=== PATIENT | male | born 1955 | race Caucasian/White ===

== ENCOUNTER 2024-08-14 11:48 | Outpatient (AMB) | payer MEDICARE, SELFPAY ==
--- NOTE | 2024-08-14 12:02 | HO.NEPHOV_ITS ---
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 He is 69 years of age with H/O vascular disease. He had CAD needing CABG and has a defibrillator. 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 He was found to have proteinuria. He recently had UE and LE swelling needing diuresis. His last ECHO showed EF of 60-65% with diastolic dysfunction. He has moderate pulmonary hypertension with PA systolic pressure of 59 mm of Hg. His serum creatinine recently had gone up to 1.61 which according to the patient has improved ( as per patient) after discontinuation of ACEI. He is unsure whether he has been getting bisphosphonates. He denies PND or orthopnea. He has no hematuria or urinary complaints. He denies taking excess sodium or NSAID's. His BP has been running low normal. He denies nausea, vomiting or diarrhea. He feels his edema has improved with torsemide [facility] Medical History (Updated 08/14/24 @ 12:31 by Berry Davila MD) Cardiac defibrillator in place MGUS (monoclonal gammopathy of unknown significance) BCC (basal cell carcinoma), face Type 2 diabetes mellitus IFG (impaired fasting glucose) Anemia Psoriasis Hyperlipidemia NSTEMI (non-ST elevated myocardial infarction) CAD (coronary artery disease) Surgical History S/P skin cancer resection Hx of CABG Family History Father Heart disease Coronary artery disease Hypertension Mother Hypertension Cerebrovascular accident Social History Patient Tobacco Use Status: Former Tobacco user Review of Systems Const All systems reviewed & are unremarkable except as noted in HPI and below Physical Exam Vital Signs: Last Vital Signs Pulse 57 08/14/24 12:03 BP 98/54 L 08/14/24 12:03 Pulse Ox 98 08/14/24 12:03 Oxygen Delivery Method Room Air 08/14/24 12:03 BMI result Body Mass Index 30.2 Const General: comfortable and no acute distress Orientation/consciousness: patient oriented x3 HEENT Head: Yes normocephalic Mouth: Normal oral and palatal mucosa present Eyes EOM: EOMs intact bilaterally Neck Neck: Yes supple Resp Auscultation: clear to auscultation bilaterally Cardio Jugular venous distension: no JVD Rate: regular rate GI Palpation (GI): Soft to palpation Auscultation: normal bowel sounds General: Yes no CVA tenderness Back/Spine/Pelvis Back: no CVA tenderness Skin General skin exam: no rashes or lesions noted Neuro General: patient oriented x3 and moves all extremities Assessment & Plan Assessment & Plan (1) MAGY (acute kidney injury): Code(s): N17.9 - Acute kidney failure, unspecified Category: Medical Plan Alli has MAGY likely due to compromise in renal perfusion with resultant tubular injury. He might have had altered autoregulation of the kidney while being on ACEI which has been discontinued. DDx - light chain disease of the kidney, medication induced . Unlikely due to obstruction. Serum creatinine better after holding ACEI. If his BP is running low normal, we may have to back off on beta renetta and add a nitrate given increase pulmonary artery systolic pressure. He needs a sleep study as well as USS of legs to R/O DVT. He may need renal biopsy if he develops worsening proteinuria or renal functions. Follow up labs ordered.Answered all questions . Orders: Orders Complete Blood Count Auto Diff 3 Months N17.9 - Acute kidney failure, unspecified Creatinine 3 Months N17.9 - Acute kidney failure, unspecified Protein Creatinine Ratio, Ur 3 Months N17.9 - Acute kidney failure, unspecified Blood Urea Nitrogen 3 Months N17.9 - Acute kidney failure, unspecified Electrolytes 3 Months N17.9 - Acute kidney failure, unspecified Calcium 3 Months N17.9 - Acute kidney failure, unspecified Albumin Level 3 Months N17.9 - Acute kidney failure, unspecified Coding Level of Care Code New Pt Level 4 (51163) Diagnoses MAGY (acute kidney injury) N17.9
[2024-08-14 12:03] VITALS: BP 98/54; PULSE 57; O2SAT 98; BMI 30.2
--- OUTSIDE RECORDS SUMMARY | 2024-08-14 12:48 | XMS_ITS | Clinical Summary ---
Author Organization [address] [facility] Address [address] [place] [address] Phone Care Team Providers Care Humane Officer Name Role Phone Rodney Crowell DO Primary Care Provider [phone] Social History Tobacco Use Types Packs/Day Years Used Date Smoking Tobacco: Never Assessed Sex and Gender Information Value Date Recorded Sex Assigned at Not on file Legal Sex Male 3:18 AM EST Gender Identity Not on file Sexual Orientation Not on file Plan of Treatment Upcoming Encounters Date Type Department Care Team ([facility] Contact Info) Description 10/16/2024 10:00 AM EDT Consult Orthopedic Surgery - [place] [id number] [phone] Srinivas Dunham, DPM [address] [address] Health Maintenance Due Date Last Done Comments Diabetes: Annual Foot Exam 1964 Diabetes: Annual Retina Eye Exam 1964 DTaP,Tdap,and Td Vaccines (1 - Tdap) 1973 Zoster Vaccines (1 of 2) 2004 Pneumococcal Vaccine: 50+ Years (2 of 2 - PCV) 11/03/2017 11/03/2016 Abdominal Aortic Aneurysm (AAA) Screen 01/10/2022 Colorectal Cancer Screening: Colonoscopy 01/10/2022 Depression Screening 01/10/2022 Falls Risk Assessment 01/10/2022 Hepatitis C Screening 01/10/2022 Medicare Annual Wellness Visit 01/10/2022 Social Influencers of Health Screening 01/10/2022 COVID-19 Vaccine ( season) 2023 07/24/2021, 01/28/2021, 06/17/2020, Additional history exists Diabetes: Annual Urine Albumin-Creatinine Ratio (uACR) 06/21/2024 Influenza Vaccine (#1) 2024 11/03/2016 Diabetes: Blood Sugar Control Test (HGBA1C) 01/11/2025 07/12/2024, 02/14/2024 Diabetes: Annual GFR (Glomerular Filtration Rate) 07/12/2025 07/12/2024, 01/17/2024 Hypertension/CHF/CAD Annual BMP Blood Test 07/12/2025 07/12/2024, 01/17/2024 RSV Immunization Adult Patients (1 - 1-dose 75+ series) 2029 Cholesterol Screening (Lipid Panel) 07/12/2029 07/12/2024, 02/14/2024 HIB Vaccines Aged Out No longer eligi ble based on patient's age to complete this topic HPV Vaccines Aged Out No longer eligi ble based on patient's age to complete this topic Hepatitis A Vaccines Aged Out No long er eligible based on patient's age to complete this topic Hepatitis B Vaccines Aged Out No long er eligible based on patient's age to complete this topic IPV Vaccines Aged Out No longer eligi ble based on patient's age to complete this topic MMR Vaccines Aged Out No longer eligi ble based on patient's age to complete this topic Meningococcal ACWY Vaccine Aged Out N o longer eligible based on patient's age to complete this topic Meningococcal B Vaccine Aged Out No l onger eligible based on patient's age to complete this topic RSV Immunization Patients Under 20 months Aged Out No longer eligible based on patient's age to complete this topic Varicella Vaccines Aged Out No longer eligible based on patient's age to complete this topic Procedures Procedure Name Priority Date/Time Associated Diagnosis Comments HEMOGLOBIN A1C Routine 07/12/2024 1:53 PM EDT CAD (coronary artery disease) HLD (hyperlipidemia) HTN (hypertension) DM (diabetes mellitus) (CMS/HCC V24, [facility] V28) IGT (impaired glucose tolerance) BASIC METABOLIC PANEL Routine 07/12/2024 1:53 PM EDT CAD (coronary artery disease) HLD (hyperlipidemia) HTN (hypertension) DM (diabetes mellitus) (CMS/HCC V24, [facility]/HCC V28) IGT (impaired glucose tolerance) CREATINE KINASE Routine 07/12/2024 1:53 PM EDT CAD (coronary artery disease) HLD (hyperlipidemia) HTN (hypertension) DM (diabetes mellitus) ([facility] V24, [facility] V28) IGT (impaired glucose tolerance) ASPARTATE AMINOTRANSFERASE Routine 07/12/2024 1:53 PM EDT CAD (coronary artery disease) HLD (hyperlipidemia) HTN (hypertension) DM (diabetes mellitus) ([facility] V24, [facility] V28) IGT (impaired glucose tolerance) ALANINE AMINOTRANSFERASE Routine 025 1:53 PM EDT CAD (coronary artery disease) HLD (hyperlipidemia) HTN (hypertension) DM (diabetes mellitus) ([facility] V24, [facility] V28) IGT (impaired glucose tolerance) LIPID PANEL WITH REFLEX TO DIRECT LDL Routine 07/12/2024 1:53 PM EDT CAD (coronary artery disease) HLD (hyperlipidemia) HTN (hypertension) DM (diabetes mellitus) ([facility] V24, [facility] V28) IGT (impaired glucose tolerance) from Last 3 Months Results * Lipid panel with reflex to direct LDL (07/12/2024 1:53 PM EDT) Cholesterol 107 0 - 200 mg/dL LAB CHEMISTRY METHOD 07/12/2024 4:37 PM T [facility] Triglycerides 73 0 - 150 mg/dL LAB CHEMISTRY METHOD 07/12/2024 4:37 PM T [facility] HDL 51 >=40 mg/dL LAB CHEMISTRY METHOD 07/12/2024 4:37 PM [facility] LDL Calculated 41 0 - 100 mg/dL LAB CHEMISTRY METHOD 07/12/2024 4:37 PM [facility] VLDL Cholesterol Rusty 14.6 mg/dL LAB CHEMISTRY METHOD 07/12/2024 4:37 PM T [facility] Non HDL Chol. (LDL+VLDL) 56 <145 mg/dL LAB CHEMISTRY METHOD 07/12/2024 4:37 PM EDT [facility] Chol/HDL Ratio 2.1 0.0 - 4.4 LAB CHEMISTRY METHOD 07/12/2024 4:37 PM EDT [facility] Blood Venous blood specimen / Unknown Venipuncture / Unknown 07/12/2024 1:53 PM EDT 07/12/2024 1:53 PM EDT [facility] [employer] LAB BLOOD ORDERABLES Final Resul t Performing Organization Address [facility]/ZIP Co de Phone Number [facility] [address] [place] [address], [place] [phone] * Alanine aminotransferase (07/12/2024 1:53 PM EDT) ALT (SGPT) 28 10 - 60 unit/L LAB CHEMISTRY METHOD 07/12/2024 4:36 PM EDT [facility] Blood Venous blood specimen / Unknown Venipuncture / Unknown 07/12/2024 1:53 PM EDT 07/12/2024 1:53 PM EDT [facility] [employer] [facility] LAB BLOOD ORDERABLES Final Resul t Performing Organization Address [facility]/ZIP Co de Phone Number [facility] [address] [place] [address], [place] [phone] * Aspartate aminotransferase (07/12/2024 1:53 PM EDT) AST (SGOT) 15 10 - 42 unit/L LAB CHEMISTRY METHOD 07/12/2024 4:36 PM EDT [facility] Blood Venous blood specimen / Unknown Venipuncture / Unknown 07/12/2024 1:53 PM EDT 07/12/2024 1:53 PM EDT [employer] [facility] LAB BLOOD ORDERABLES Final Resul t Performing Organization Address City/[facility]/ZIP Co de Phone Number [facility] [address] [place] [address], [place] [phone] * Hemoglobin A1c (07/12/2024 1:53 PM EDT) [facility] Hemoglobin A1C 5.8 <6.5 % LAB CHEMISTRY METHOD 07/12/2024 10:50 PM EDT [facility] Mean Bld Glu Estim. 120 mg/dL LAB CHEMISTRY METHOD 07/12/2024 10:50 PM EDT [facility] Blood Venous blood specimen / Unknown Venipuncture / Unknown 07/12/2024 1:53 PM EDT 07/12/2024 1:53 PM EDT [facility] LAB BLOOD ORDERABLES Final Resul t Performing Organization Address [facility] de Phone Number [facility] [address] [place] [address], [place] [phone] * Creatine kinase (07/12/2024 1:53 PM EDT) [facility] Total CK 45 22 - 269 unit/L LAB CHEMISTRY METHOD 07/12/2024 4:37 PM EDT [facility] Blood Venous blood specimen / Unknown Venipuncture / Unknown 07/12/2024 1:53 PM EDT 07/12/2024 1:53 PM EDT [employer] LAB BLOOD ORDERABLES Final Resul t Performing Organization Address [facility]/ZIP Co de Phone Number [facility] [address] [place] [address], [place] [phone] * (ABNORMAL) Basic metabolic panel (07/12/2024 1:53 PM EDT) [facility] Sodium 143 133 - 145 mmol/L LAB CHEMISTRY METHOD 07/12/2024 4:36 PM EDT [facility] Potassium 4.3 3.5 - 5.5 mmol/L LAB CHEMISTRY METHOD 07/12/2024 4:36 PM T [facility] Chloride 106 96 - 110 mmol/L LAB CHEMISTRY METHOD 07/12/2024 4:36 PM [facility] CO2 29 21 - 32 mmol/L LAB CHEMISTRY METHOD 07/12/2024 4:36 PM [facility] Anion Gap 8 3 - 11 LAB CHEMISTRY METHOD 07/12/2024 4:36 PM [facility] Glucose 130(H) 70 - 100 mg/dL LAB CHEMISTRY METHOD 07/12/2024 4:36 PM [facility] BUN 19 5 - 25 mg/dL LAB CHEMISTRY METHOD 07/12/2024 4:36 PM [facility] Creatinine 1.62(H) 0.70 - 1.30 mg/dL LAB CHEMISTRY METHOD 07/12/2024 4:36 PM [facility] eGFR 45(L) >=60 mL/min/1. 73m2 LAB CHEMISTRY METHOD 07/12/2024 4:36 PM [facility] Comment:Calculation based on the Chronic Kidney Disease Epidemiology Collaboration (CKD-EPI) equation refit without adjustment for race. BUN/Creatinine Ratio 11.7 LAB CHEMISTRY METHOD 07/12/2024 4:36 PM [facility] Calcium 8.3(L) 8.5 - 10.5 mg/dL LAB CHEMISTRY METHOD 07/12/2024 4:36 PM [facility] Blood Venous blood specimen / Unknown Venipuncture / Unknown 07/12/2024 1:53 PM EDT 07/12/2024 1:53 PM EDT us D[facility] LAB BLOOD ORDERABLES Final Resul t [facility] [address] [place] [address], [place] [phone] from Last [address] [place] [phone] [facility] MEDICAID - [place] [employer] MEDICARE Care Teams Humane Officer Relationship Specialty Start Date End Date Rodney Crowell DO [address] [place] [address] [place] [address] PCP - General Internal Medicine 01/17/24
== END 2024-08-14 12:37 | disposition home or self-care (01) ==
LOC: HO.HKA 11:48
PROVIDERS: PCP Internal Medicine; Visit Provider Internal Medicine Nephrology
DX: N17.9 Acute kidney failure, unspecified (principal)
CPT/HCPCS: 99204

== ENCOUNTER → 2024-08-14 11:48 | Outpatient (BNVA) | payer MEDICARE, SELFPAY | PROVIDERS: PCP Internal Medicine; Visit Provider Internal Medicine Nephrology | DX: R80.8 Other proteinuria (principal); N17.9 Acute kidney failure, unspecified | CPT/HCPCS: 99202 ==

== ENCOUNTER 2024-12-06 09:45 | Outpatient (AMB) | payer MEDICARE, SELFPAY ==
--- NOTE | 2024-12-06 09:49 | HO.NEPHOV_ITS ---
Vital Signs 12/06/24 09:54 Height 5 ft 7 in Weight 182 lb 8 oz BMI 28.6 BP 114/60 Blood Pressure Location Rt brachial Position Sitting Pulse 62 Pulse Source Pulse Oximeter Pulse Oximetry (%) 100 Oxygen Delivery Method Room Air Intake Visit Reasons: 3mon follow-up w/labs-[employer] Required: No Accompanied by: Other Relationship Allergies No Known Allergies Allergy (Verified 12/06/24 09:54) HPI Comments Details: Alli was seen for F/U of H/O MAGY and CKD . He is 69 years of age with H/O vascular disease. He had CAD needing CABG and has a defibrillator. 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 He was found to have proteinuria. He recently had UE and LE swelling needing diuresis. His last ECHO showed EF of 60-65% with diastolic dysfunction. He has moderate pulmonary hypertension with PA systolic pressure of 59 mm of Hg. His serum creatinine recently had gone up to 1.61 which according to the patient has improved ( as per patient) after discontinuation of ACEI. He is unsure whether he has been getting bisphosphonates. He denies PND or orthopnea. He has no hematuria or urinary complaints. He denies taking excess sodium or NSAID's. His BP has been at goal. He denies nausea, vomiting or diarrhea. He feels his edema has improved with diuretics [facility] Medical History (Updated 12/06/24 @ 10:09 by Berry Davila MD) Cardiac defibrillator in place MGUS (monoclonal gammopathy of unknown significance) BCC (basal cell carcinoma), face Type 2 diabetes mellitus IFG (impaired fasting glucose) Anemia Psoriasis Hyperlipidemia NSTEMI (non-ST elevated myocardial infarction) CAD (coronary artery disease) Surgical History S/P skin cancer resection Hx of CABG Family History Father Heart disease Coronary artery disease Hypertension Mother Hypertension Cerebrovascular accident Social History Patient Tobacco Use Status: Former Tobacco user Review of Systems Const All systems reviewed & are unremarkable except as noted in HPI and below Physical Exam Const General: comfortable and no acute distress Orientation/consciousness: patient oriented x3 HEENT Head: Yes normocephalic Mouth: Normal oral and palatal mucosa present Eyes EOM: EOMs intact bilaterally Neck Neck: Yes supple Resp Auscultation: clear to auscultation bilaterally Cardio Jugular venous distension: no JVD Rate: regular rate GI Palpation (GI): Soft to palpation Auscultation: normal bowel sounds General: Yes no CVA tenderness Back/Spine/Pelvis Back: no CVA tenderness Skin General skin exam: no rashes or lesions noted Neuro General: patient oriented x3 and moves all extremities Extrem General: Yes no pedal edema Assessment & Plan Assessment & Plan (1) MAGY (acute kidney injury): Code(s): N17.9 - Acute kidney failure, unspecified Category: Medical (2) CKD (chronic kidney disease) stage 3, GFR 30-59 ml/min: Code(s): N18.30 - Chronic kidney disease, stage 3 unspecified Category: Medical Qualifiers: Chronic kidney disease stage 3 subtype: stage 3a (GFR 45-59) Qualified Code(s): N18.31 - Chronic kidney disease, stage 3a Plan Alli had MAGY likely due to compromise in renal perfusion with resultant tubular injury. He might have had altered autoregulation of the kidney while being on ACEI which has been discontinued. DDx - light chain disease of the kidney, medication induced . He has CKD 3 from vascular disease. Serum creatinine better after holding ACEI. He may need renal biopsy if he develops worsening proteinuria or renal functions. Follow up labs ordered.Answered all questions Orders: Orders Electrolytes 4 Months N17.9 - Acute kidney failure, unspecified, N18.30 - Chronic kidney disease, stage 3 unspecified Blood Urea Nitrogen 4 Months N17.9 - Acute kidney failure, unspecified, N18.30 - Chronic kidney disease, stage 3 unspecified Creatinine 4 Months N17.9 - Acute kidney failure, unspecified, N18.30 - Chronic kidney disease, stage 3 unspecified Calcium 4 Months N17.9 - Acute kidney failure, unspecified, N18.30 - Chronic kidney disease, stage 3 unspecified Coding Level of Care Code Est Pt Level 4 (63766) Diagnoses MAGY (acute kidney injury) N17.9 Stage 3a chronic kidney disease N18.31 Chronic kidney disease stage 3 subtype: stage 3a (GFR 45-59)
[2024-12-06 09:54] VITALS: BP 114/60; PULSE 62; O2SAT 100; BMI 28.6
--- OUTSIDE RECORDS SUMMARY | 2024-12-06 11:24 | XMS_ITS | Clinical Summary ---
Author Organization [address] [facility] Address [address] [facility] MARY Perez [phone] Phone Care Team Providers Care Obstetrics Gynecology Physician Name Role Phone Rodney Crowell DO Primary Care Provider [phone] Allergies No known active allergies Medications aspirin 81 mg EC tablet Take 1 tablet (81 mg total) by mouth. 11/02/19 17 Active atorvastatin (LIPITOR) 40 mg tablet 08/25/19 25 Active bumetanide (BUMEX) 1 mg tablet Take 1 tablet (1 mg total) by mouth 1 (one) time each day. for 3 days 01/14/20 24 Active famotidine (PEPCID) 20 mg tablet Take 1 tablet (20 mg total) by mouth. 11/19/19 17 Active furosemide (LASIX) 20 mg tablet 05/04/19 25 Active Revlimid 10 mg capsule 10/10/19 25 Active metoprolol succinate (TOPROL-XL) 25 mg 24 hr tablet 10/05/19 25 Active metoprolol tartrate (LOPRESSOR) 100 mg tablet 04/27/19 25 Active ondansetron ODT (ZOFRAN-ODT) 4 mg disintegrating tablet Take 1 tablet (4 mg total) by mouth. 05/11/19 25 Active prochlorperazine (COMPAZINE) 5 mg tablet Take 1 tablet (5 mg total) by mouth. 05/11/19 25 Active Bactrim 400-80 mg per tablet See Instructions, 1 tablet By Mouth Daily every tuesday, tuesday, tuesday, # 30 each, 1 Refills, Maintenance, 05/10/24 2:04:00 PM EDT, Tablet, [id number], Partial fill upon patient request if the prescription is for a schedule II opioid drug., 1 tablet By Mouth Daily every tuesday, tuesday, tuesday, 169, cm, 04/30/24 13:30:00 EDT, Height, 91.9, kg, 04/30/24 13:30:00 EDT, Dry Weight 05/11/19 Active torsemide (DEMADEX) 20 mg tablet 10/07/19 Active acyclovir (ZOVIRAX) 400 mg tablet Take 1 tablet (400 mg total) by mouth. 08/09/19 025 Encounters Date Type Department Care Team Description 10/16/2024 10:00 AM EDT Consult Orthopedic Surgery [facility] [address] [facility] [address] [place] [phone] Srinivas Dunham DPM Dermatophytosis of nail (Primary Dx); Diabetic foot (CMS/HCC V24, CMS/HCC V28); Onychogryphosis; Pain in toe of left foot; Pain in toe of right foot; Bilateral femoral artery stenosis (CMS/HCC V24) from Last 3 Months Social History Tobacco Use Types Packs/Day Years Used Date Smoking Tobacco: Never Assessed Sex and Gender Information Value Date Recorded Sex Assigned at Not on file Legal Sex Male 3:18 AM EST Gender Identity Not on file Sexual Orientation Not on file Plan of Treatment Upcoming Encounters Date Type Department Care Team ([facility] st Contact Info) Description 12/25/2024 9:30 AM EST Office Visit Orthopedic Surgery [facility] [address] [phone] Srinivas Dunham DPM [address] [place] [phone] Health Maintenance Due Date Last Done Comments Colorectal Cancer Screening: Colonoscopy 1954 Diabetes: Annual Foot Exam 1964 Diabetes: Annual Retina Eye Exam 1964 DTaP,Tdap,and Td Vaccines (1 - Tdap) 1973 RSV Immunization Adult Patients (1 - Risk 50-74 years 1-dose series) 2004 Zoster Vaccines (1 of 2) 2004 Pneumococcal Vaccine: 50+ Years (2 of 2 - PCV) 11/03/2017 11/03/2016 Abdominal Aortic Aneurysm (AAA) Screen 01/10/2022 Falls Risk Assessment 01/10/2022 Hepatitis C Screening 01/10/2022 Medicare Annual Wellness Visit 01/10/2022 Social Influencers of Health Screening 01/10/2022 Depression Screening 02/08/2024 COVID-19 Vaccine ( season) 2024 07/24/2021, 01/28/2021, 06/17/2020, Additional history exists Influenza Vaccine (#1) 2024 11/03/2016 Diabetes: Annual Urine Albumin-Creatinine Ratio (uACR) 10/16/2024 Diabetes: Blood Sugar Control Test (HGBA1C) 01/11/2025 07/12/2024, 02/14/2024 Diabetes: Annual GFR (Glomerular Filtration Rate) 07/12/2025 07/12/2024, 01/17/2024 Hypertension/CHF/CAD Annual BMP Blood Test 07/12/2025 07/12/2024, 01/17/2024 Cholesterol Screening (Lipid Panel) 07/12/2029 07/12/2024, 02/14/2024 [...] Procedure Name Priority Date/Time Associated Diagnosis Comments BASIC METABOLIC PANEL Routine 07/12/2024 1:53 PM EDT CAD (coronary artery disease) HLD (hyperlipidemia) HTN (hypertension) DM (diabetes mellitus) (CMS/HCC V24, CMS/HCC V28) IGT (impaired glucose tolerance) HEMOGLOBIN A1C Routine 07/12/2024 1:53 PM EDT CAD (coronary artery disease) HLD (hyperlipidemia) HTN (hypertension) DM (diabetes mellitus) ([facility] V24, [facility] V28) IGT (impaired glucose tolerance) LIPID PANEL WITH REFLEX TO DIRECT LDL Routine 07/12/2024 1:53 PM EDT CAD (coronary artery disease) HLD (hyperlipidemia) HTN (hypertension) DM (diabetes mellitus) ([facility] V24, [facility] V28) IGT (impaired glucose tolerance) from Last 3 Months or Most Recently Relevant to Health Maintenance Results * Lipid panel with reflex to direct LDL (07/12/2024 1:53 PM EDT) Cholesterol 107 0 - 200 mg/dL LAB CHEMISTRY METHOD [facility] Triglycerides 73 0 - 150 mg/dL LAB CHEMISTRY METHOD 07/12/2024 4:37 PM [facility] HDL 51 >=40 mg/dL LAB CHEMISTRY METHOD 07/12/2024 4:37 PM [facility] LDL Calculated 41 0 - 100 mg/dL LAB CHEMISTRY METHOD 07/12/2024 4:37 PM [facility] VLDL Cholesterol Rusty 14.6 mg/dL LAB CHEMISTRY METHOD 07/12/2024 4:37 PM [facility] Non HDL Chol. (LDL+VLDL) 56 <145 mg/dL LAB CHEMISTRY METHOD 07/12/2024 4:37 PM [facility] Chol/HDL Ratio 2.1 0.0 - 4.4 LAB CHEMISTRY METHOD 07/12/2024 4:37 PM [facility] Blood Venous blood specimen / Unknown Venipuncture / Unknown 07/12/2024 1:53 PM EDT 07/12/2024 1:53 PM EDT Dmitry Loomisjoisedmitry LAB BLOOD ORDERABLES Final Resul t Performing Organization Address City/[facility]/ZIP Co de Phone Number [facility] [address] [place] [address], [place] [phone] * Hemoglobin A1c (07/12/2024 1:53 PM EDT) Pathologist [facility] Hemoglobin A1C 5.8 <6.5 % LAB CHEMISTRY METHOD 07/12/2024 10:50 PM EDT [facility] Mean Bld Glu Estim. 120 mg/dL LAB CHEMISTRY METHOD 07/12/2024 10:50 PM EDT [facility] Blood Venous blood specimen / Unknown Venipuncture / Unknown 07/12/2024 1:53 PM EDT 07/12/2024 1:53 PM EDT Dmitry Najera LAB BLOOD ORDERABLES Final Resul t Performing Organization Address [facility]/ZIP Co de Phone Number [facility] [address] [place] [address], [place] [phone] * (ABNORMAL) Basic metabolic panel (07/12/2024 1:53 PM EDT) [facility] Sodium 143 133 - 145 mmol/L LAB CHEMISTRY METHOD 07/12/2024 4:36 PM EDT [facility] Potassium 4.3 3.5 - 5.5 mmol/L LAB CHEMISTRY METHOD 07/12/2024 4:36 PM EDT [facility] Chloride 106 96 - 110 mmol/L LAB CHEMISTRY METHOD 07/12/2024 4:36 PM EDT [facility] CO2 29 21 - 32 mmol/L LAB CHEMISTRY METHOD 07/12/2024 4:36 PM EDT [facility] Anion Gap 8 3 - 11 LAB CHEMISTRY METHOD 07/12/2024 4:36 PM EDT [facility] Glucose 130(H) 70 - 100 mg/dL LAB CHEMISTRY METHOD 07/12/2024 4:36 PM EDT [facility] BUN 19 5 - 25 mg/dL LAB CHEMISTRY METHOD 07/12/2024 4:36 PM EDT [facility] Creatinine 1.62(H) 0.70 - 1.30 mg/dL LAB CHEMISTRY METHOD 07/12/2024 4:36 PM EDT [facility] eGFR 45(L) >=60 mL/min/1. 73m2 LAB CHEMISTRY METHOD 07/12/2024 4:36 PM EDT [facility] Comment:Calculation based on the Chronic Kidney Disease Epidemiology Collaboration (CKD-EPI) equation refit without adjustment for race. BUN/Creatinine Ratio 11.7 LAB CHEMISTRY METHOD 07/12/2024 4:36 PM EDT [facility] Calcium 8.3(L) 8.5 - 10.5 mg/dL LAB CHEMISTRY METHOD 07/12/2024 4:36 PM EDT [facility] Blood Venous blood specimen / Unknown Venipuncture / Unknown 07/12/2024 1:53 PM EDT 07/12/2024 1:53 PM EDT Dmitry Roper LAB BLOOD ORDERABLES Final Resul t [facility] [address] [place] [address], from Last 3 Months or Most Recently Relevant to [place] [address] [facility] MEDICA[place] [facility] [place] [phone] [employer] MEDICARE [employer] MED[employer]ARE Care Teams Obstetrics Gynecology Physician Relationship Specialty Start Date End Date Rodney Crowell DO [address] [place] [phone] PCP - General Internal Medicine 01/17/24
== END 2024-12-06 10:12 | disposition home or self-care (01) ==
LOC: HO.HKAS 09:46
PROVIDERS: PCP Internal Medicine; Visit Provider Internal Medicine Nephrology
DX: N17.9 Acute kidney failure, unspecified (principal); N18.31 Chronic kidney disease, stage 3a
CPT/HCPCS: 99214

== ENCOUNTER → 2024-12-06 09:45 | Outpatient (BNVA) | payer MEDICARE, SELFPAY | PROVIDERS: PCP Internal Medicine; Visit Provider Internal Medicine Nephrology | DX: E11.22 Type 2 diabetes mellitus with diabetic chronic kidney disease (principal); N18.31 Chronic kidney disease, stage 3a; N17.9 Acute kidney failure, unspecified | CPT/HCPCS: 99212 ==